=== PATIENT | female | born 1955 | race Caucasian/White ===

== ENCOUNTER 2018-03-07 07:38 | Day surgery (SDC) | payer OTHER ==
[~2018-03-07] VITALS: Ht 315 cm; Wt 100.7 kg
[~2018-03-07 07:38] MED LIST: AGGRENOX 25 MG-21 EA PO; AMITRIPTYLINE H50 MG PO; ASPIRIN325 MG PO; BAYER ADVANCED500 MG PO; BENADRYL25 MG PO; BUPROPION XL150 MG PO; CRESTOR20 MG PO; DICLOFENAC SODI75 MG PO; ESTROVEN NIGHT1 EAC1 PO; NEILMED SINUS1 EACH NAS
--- NOTE | 2018-03-07 10:02 | NUR ---
03/07/18 Jacinto1 Sylwia Lin 4504-PATIENT ARRIVED TO PACU ON 3L NC WEANED TO 2L NC O2 SAT 99% PATIENT VERY DROWSY EYES OPEN REPOSITIONED SELF TO BACK BACK TO SLEEP. PASSING FLATUS. ABDOMEN ROUND AND SOFT.
--- NOTE | 2018-03-08 09:05 | OR ---
[facility] [address], [place] [address] Signed DATE OF OPERATION: 03/07/2018 SURGEON: Xochitl Whelan MD COLONOSCOPY REPORT PREOPERATIVE DIAGNOSES: 1. Diverticulosis. 2. Internal hemorrhoids. 3. Hyperplastic rectal polyps. 4. Paternal great uncle with colon cancer. POSTOPERATIVE DIAGNOSES: 1. 12-mm pedunculated polyp at 22 cm (tattoo). 2. 10-mm sessile polyp, distal right colon. 3. 4-mm polyp, base of cecum. 4. 3-mm polyp at 70 cm. 5. 3-mm polyp at 20 cm. 6. Bbfrasc-ek-yydenodj sigmoid diverticulosis. 7. Moderate internal hemorrhoids. 8. Tortuous sigmoid colon. PROCEDURE PERFORMED: Colonoscopy with hot biopsy, snare polypectomy, and injection of tattoo at 22 cm. INDICATIONS: Jaimee is a 63-year-old female who came in 2006 for colonoscopy. She had diverticulosis along with internal hemorrhoids. The hyperplastic polyps have been taken out of rectum. In the meantime, she learned that her paternal great uncle had colon cancer. She has also had a stroke affecting her left side of her body. She said her left hand is still a little weak. 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 In the office, I gave her a pamphlet on colonoscopy. We looked at that test along with the risks including, but not limited to gas bloating, crampy abdominal pain, bleeding, perforation requiring surgery, and missed diagnosis. We also discussed the need for IV conscious sedation. She had expressed her understanding and wished to proceed. DESCRIPTION OF PROCEDURE: Jaimee was taken into our Endoscopy Suite and placed in the left lateral decubitus position. She was given IV sedation with 12 mg of Versed and 200 mcg of fentanyl to cover the case. She was also given preoperative antibiotics for her bilateral knee Electronically Signed By: XOCHITL WHELAN MD 03/08/18 0905 PATIENT NAME: JAIMEE OJEDA OPERATIVE REPORT DATE OF : 57 REPORT #: [id number] PHYSICIAN: XOCHITL WHELAN MD PCP: MIKA ROBERSON MD REPORT IS CONFIDENTIAL AND NOT TO BE RELEASED WITHOUT AUTHORIZATION [facility] [address], [place] [address] Signed replacements. A digital rectal exam was performed and this was unremarkable. The adult colonoscope was introduced and advanced all around into the cecum under direct visualization of camera. It took extra sedation and abdominal compression, particularly get through her tortuous sigmoid colon. Fortunately, her prep was good. The scope was slowly withdrawn. We used the hot biopsy forceps multiple times to remove and destroy the sessile polyp in the distal right colon. The other three smaller polyps were all removed with a hot biopsy forceps and then back at 22 cm was a pedunculated polyp, which we took off with the snare and biopsied and cauterized to one side with the hot biopsy forceps. We also injected a tattoo just opposite to that area to boogie its location. We suctioned the polyp onto the scope and brought it out through the rectum. In the sigmoid colon, she did have bgmiasj-js-tfcxcigc sigmoid diverticulosis. The scope was then retroflexed in the rectum. She did have moderate internal hemorrhoid columns. After this, the gas was suctioned out and the colonoscope removed. Jaimee tolerated the procedure quite well. RECOMMENDATIONS: I will see jaimee back in my office in 7 to 14 days to review her results. I suspect she is going to switch over to a colonoscopy every 5 years. Xochitl Whelan MD ALB/MODL /[id number] cc: MD Mika King MD Copies: XOCHITL WHELAN MD, MALCOLM MD ~ Electronically Signed By: XOCHITL WHELAN MD 03/08/18904 PATIENT NAME: JAIMEE OJEDA OPERATIVE REPORT DATE OF : 57 REPORT #: [id number] PHYSICIAN: XOCHITL WHELAN MD PCP: MIKA ROBERSON MD REPORT IS CONFIDENTIAL AND NOT TO BE RELEASED WITHOUT AUTHORIZATION
== END 2018-03-07 11:08 | disposition home or self-care (01) ==
LOC: DS 07:38 → OPS 07:38 → DS 09:00 → OPS 11:08
PROVIDERS: Colon & Rectal Surgery
PROC: 0DBH8ZZ Excision of Cecum, Via Natural or Artificial Opening Endoscopic (ICD-10-PCS; 2018-03-07)
PROC: 0DBE8ZZ Excision of Large Intestine, Via Natural or Artificial Opening Endoscopic (ICD-10-PCS; 2018-03-07)
PROC: 3E0H8GC Introduction of Other Therapeutic Substance into Lower GI, Via Natural or Artificial Opening Endoscopic (ICD-10-PCS; 2018-03-07)
PROC: 0DBK8ZZ Excision of Ascending Colon, Via Natural or Artificial Opening Endoscopic (ICD-10-PCS; principal; 2018-03-07 09:00)
DX: Z12.11 Encounter for screening for malignant neoplasm of colon (principal); D12.0 Benign neoplasm of cecum; D12.2 Benign neoplasm of ascending colon; D12.6 Benign neoplasm of colon, unspecified; K63.5 Polyp of colon; K57.30 Diverticulosis of large intestine without perforation or abscess without bleeding; K64.8 Other hemorrhoids; I69.354 Hemiplegia and hemiparesis following cerebral infarction affecting left non-dominant side; E78.00 Pure hypercholesterolemia, unspecified; E66.9 Obesity, unspecified; M19.90 Unspecified osteoarthritis, unspecified site; F32.9 Major depressive disorder, single episode, unspecified; Z80.0 Family history of malignant neoplasm of digestive organs; Z98.890 Other specified postprocedural states; Z88.1 Allergy status to other antibiotic agents; Z88.8 Allergy status to other drugs, medicaments and biological substances; Z79.899 Other long term (current) drug therapy
CPT/HCPCS: 99153; G0500; J2250; J3010; J7120

== ENCOUNTER 2021-04-12 15:29 | Emergency (ER) | payer MEDICARE, BC ==
[~2021-04-12] VITALS: Ht 162.6 cm; Wt 100.7 kg
[2021-04-12] MEDS ORDERED: TOPIRAMATE25 MG PO (16:04)
[2021-04-12] MEDS ORDERED: CLOPIDOGREL75 MG PO (16:04)
[2021-04-12] MEDS ORDERED: ATORVASTATIN CA80 MG PO (16:05)
[2021-04-12] MEDS ORDERED: CITALOPRAM HBR40 MG PO (16:05)
[2021-04-12] MEDS ORDERED: POTASSIUM CHLO10 MEQ PO (16:06)
== END 2021-04-12 17:25 | disposition home or self-care (01) ==
LOC: ED 15:29
DX: S63.502A Unspecified sprain of left wrist, initial encounter (principal); S00.12XA Contusion of left eyelid and periocular area, initial encounter; W01.10XA Fall on same level from slipping, tripping and stumbling with subsequent striking against unspecified object, initial encounter; Z86.73 Personal history of transient ischemic attack (TIA), and cerebral infarction without residual deficits; Z88.1 Allergy status to other antibiotic agents; Z88.8 Allergy status to other drugs, medicaments and biological substances; Z79.899 Other long term (current) drug therapy
CPT/HCPCS: 70450; 73110; 99284-25

== ENCOUNTER 2021-04-18 09:07 | Emergency (ER) | payer MEDICARE, BC ==
[~2021-04-18] VITALS: Ht 162.6 cm; Wt 98.0 kg
[~2021-04-18 09:07] MED LIST changes: +ATORVASTATIN CA80 MG PO; +CITALOPRAM HBR40 MG PO; +CLOPIDOGREL75 MG PO; +POTASSIUM CHLO10 MEQ PO; +TOPIRAMATE25 MG PO
--- OUTSIDE RECORDS SUMMARY | 2021-04-18 09:16 | XMS ---
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 Sudarshan VISIT COUNT (12 MO.) 1 [facility] [address] TOTAL 4 NOTE: Visits indicate total known visits. ED/UCC VISIT TRACKING (12 MO.) 04/18/2021 09:08 [facility] TYPE: Emergency COMPLAINT: - LEFT SHOULDER PAIN 04/12/2021 15:33 [facility] [place] TYPE: Emergency COMPLAINT: - FALL DIAGNOSES: - Fall on same level from slipping, tripping and stumbling with subsequent striking against unspecified object, initial encounter - Allergy status to other drugs, medicaments and biological substances - Contusion of left eyelid and periocular area, initial encounter - Unspecified sprain of left wrist, initial encounter - Allergy status to other antibiotic agents - Other retirement (current) drug therapy - Personal history of transient ischemic attack (TIA), and cerebral infarction without residual deficits 12/07/2020 13:49 [facility] TYPE: Emergency DIAGNOSES: - Cerebral infarction, unspecified - stroke 12/07/2020 06:24 [facility] [place] TYPE: Emergency DIAGNOSES: - STROKE - Cerebral infarction, unspecified INPATIENT VISIT TRACKING (12 MO.) 12/07/2020 13:49 [facility] TYPE: Neurology DIAGNOSES: - Obstructive sleep apnea (adult) (pediatric) - Rheumatic tricuspid insufficiency - Personal history of transient ischemic attack (TIA), and cerebral infarction without residual deficits - Cerebral infarction, unspecified - Hypokalemia - Localized enlarged lymph nodes [email or web address]
== END 2021-04-18 10:45 | disposition home or self-care (01) ==
LOC: ED 09:07
DX: S43.402A Unspecified sprain of left shoulder joint, initial encounter (principal); M25.522 Pain in left elbow; Z86.73 Personal history of transient ischemic attack (TIA), and cerebral infarction without residual deficits; Z88.8 Allergy status to other drugs, medicaments and biological substances; Z88.1 Allergy status to other antibiotic agents; Z79.899 Other long term (current) drug therapy
CPT/HCPCS: 73030; 73080; 99283-25

== ENCOUNTER 2021-08-01 11:17 | Observation (INO) | payer MEDICARE, BC ==
[~2021-08-01] VITALS: Ht 162.6 cm; Wt 92.5 kg
--- OUTSIDE RECORDS SUMMARY | 2021-08-01 11:20 | XMS ---
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 Care History Medical/Surgical 04/21/2021 [facility] - Patient is currently established with [facility]. If patient is seen in the ED during business hours. Please contact CHWs at [facility]. Care Recommendation: If this patient has had 5 or more Emergency Department visits in the last 12 months.\T\nbsp; Patient will require education on the scope and purpose of the ED as an acute care provider not a Primary Care Provider and should not be utilized for chronic conditions.\T\nbsp; These are guidelines and the provider should exercise clinical judgment when providing care. 04/21/2021 [facility] Patient was just seen by PCP Dr. Loera on 04/14/2021 and will be seen again on 06/07/2021. I left kalia to remind patient to follow up with Dr. Adams. [place] VISIT COUNT (12 MO.) 1 [place] [id number] [facility] TOTAL 5 NOTE: Visits indicate total known visits. ED/UCC VISIT TRACKING (12 MO.) 08/01/2021 11:17 [facility] [place] TYPE: Emergency COMPLAINT: - STROKE SYMPTOMS 04/18/2021 09:08 [facility] [place] TYPE: Emergency COMPLAINT: - LEFT SHOULDER PAIN DIAGNOSES: - Headache, unspecified - Allergy status to other drugs, medicaments and biological substances - Allergy status to other antibiotic agents - Personal history of transient ischemic attack (TIA), and cerebral infarction without residual deficits - Pain in left elbow - Unspecified sprain of left shoulder joint, initial encounter - Other local company intermodal truck driver (current) drug therapy 04/12/2021 15:33 [facility] [place] TYPE: Emergency [...] status to other antibiotic agents - Other shelter (current) drug therapy - Personal history of transient ischemic attack (TIA), and cerebral infarction without residual deficits 12/07/2020 13:49 [facility] TYPE: Emergency DIAGNOSES: - Cerebral infarction, unspecified - stroke 12/07/2020 06:24 [facility] [place] TYPE: Emergency DIAGNOSES: - STROKE - Cerebral infarction, unspecified INPATIENT VISIT TRACKING (12 MO.) 12/07/2020 13:49 [facility] TYPE: Neurology DIAGNOSES: - Obstructive sleep apnea (adult) (pediatric) - Rheumatic tricuspid insufficiency - Personal history of transient ischemic attack (TIA), and cerebral infarction without residual deficits - Cerebral infarction, unspecified - Hypokalemia - Localized enlarged lymph nodes [email or web address]
[2021-08-01] MEDS ORDERED: NITROFURANTOIN100 MG PO (11:30)
[2021-08-01] MEDS ORDERED: ESTRADIOL42.5 GM VAGINAL (11:30)
[2021-08-01] MEDS ORDERED: ACYCLOVIR200 MG PO (11:31)
--- NOTE | 2021-08-01 13:05 | NUR ---
Pt arrives to medical surgical floor. Dr Kumar in immediately to see patient. Tele placed, VSS, pt A+O. States having no symptoms currently. at bedside. Pt on room air.
--- NOTE | 2021-08-01 14:53 | NUR ---
Scheduled medications administered. Pt resting in bed, states "feeling well" and has no symptoms to report. Strength 4/5 on LUE, otherwise 5/5 with flexion. Pt able to drink water with no difficulty, no facial droop noted. ICE CREAM SERVER in room to assist patient with using commode
--- NOTE | 2021-08-01 19:30 | NUR ---
SHIFT REPORT RECEIVED FROM BERNADETTE FERREIRA. PT VISITING WITH FAMILY. NO NEEDS AT THIS TIME. CALL LIGHT IN REACH.
--- NOTE | 2021-08-01 22:00 | NUR ---
ASSESSMENT COMPLETED. GCS 15, A&O X4. LUNGS CLEAR, HEART TONES REGULAR. ABD SOFT, NONTENDER, BOWEL TONES ACTIVE. PT HAS DECREASED MOVEMENT IN LEFT SHOULDER AND HAND FROM PREVIOUS CVA, PT STATES SHE IS AT BASELINE NOW. PT HAS WEAKNESS IN BOTH LEGS WHEN STANDING. IV WNL, FLUSHED WELL, CDI. ABD SOFT, NONTENDER, BOWEL TONES ACTIVE. PULSES AND CIRCULATION INTACT. TELE HR SR @ 88. PT DENEIS PAIN. BRUISE NOTED ON RIGHT LOWER BACK. NO OTHER NEEDS AT THIS TIME. CALL LIGHT IN REACH.
--- NOTE | 2021-08-02 | NUR ---
PT RESTING IN BED, TALKING WITH AN RN. NO NEEDS AT THIS TIME. CALL LIGHT IN REACH.
--- NOTE | 2021-08-02 02:00 | NUR ---
VS AND I&O COMPLETED. NO CHANGES TO NEURO NOTED. NO NEEDS AT THIS TIME. CALL LIGHT IN REACH.
--- NOTE | 2021-08-02 04:00 | NUR ---
PT RESTING INBED, EYES CLOSED. RR EVEN, UNLABORED. CALL LIGHT IN REACH.
--- NOTE | 2021-08-02 06:00 | NUR ---
ASSESSMENT, VS AND I&O COMPLETED. LEFT SHOULDER AND HAND DECREASED MOVEMENT UNCHANGED. BLE WEAKNESS UNCHANGED. PT TRANSFERS 2PA TO BSC. GCS 15, A&O X4. IV WNL. LUNGS CLEAR, HEART TONES REGULAR. TELE SR @ 76. UP TO BSC AND BACK TO BED. NO OTHER NEEDS. CALL LIGHT IN REACH.
--- NOTE | 2021-08-02 07:15 | NUR ---
Report received from Jessie FERREIRA. Pt resting in bed with no needs at this time. Will continue plan of care.
[2021-08-02] MEDS ORDERED: TUMS200 MG PO (09:23)
[2021-08-02] MEDS ORDERED: CLARITIN10 MG PO (09:24)
[2021-08-02] MEDS ORDERED: ADULT ASPIRIN R81 MG PO (09:25)
[2021-08-02] MEDS ORDERED: CRANBERRY500 M3 PO (09:25)
[2021-08-02] MEDS ORDERED: VENTOLIN HFA18 GM INH (09:26)
[2021-08-02] MEDS ORDERED: HAIR, SKIN & N1 EACH PO (09:28)
[2021-08-02] MEDS ORDERED: VITAMIN D350 MCG PO (09:29)
[2021-08-02] MEDS ORDERED: MELATONIN10 M2 PO (09:30)
[2021-08-02] MEDS ORDERED: CENTRUM SILVER1 EAC3 PO (09:30)
[2021-08-02] MEDS ORDERED: LYSINE500 MG PO (09:32)
[2021-08-02] MEDS ORDERED: TURMERIC500 M2 PO (09:32)
[2021-08-02] MEDS ORDERED: FERROUS SULFAT325 M2 PO (09:33)
--- NOTE | 2021-08-02 09:45 | NUR ---
Scheduled medications administered and assessment complete. Neuro checks WNL, pt reports being at her baseline with L sided weakness and shoulder pain. Able to swallow pills whole with water. No neuro defecits noted--no facial droop, no slurred speech. Pt at bedside, attentive to patient and engaged in care.
--- NOTE | 2021-08-02 10:21 | NUR ---
MED REC COMPLETE
--- NOTE | 2021-08-02 10:55 | NUR ---
Discharge teaching provided and patient verbalizes understanding and has no questions. Pt in stable condition, VSS, A+O. Pt dressed and IV removed WNL. Personal belongings returned. Education paperwork and f/u appointment info provided. to provide ride home.
--- NOTE | 2021-08-02 13:47 | EKG ---
[facility] [address] [facility] [place], [place] [address] Signed Normal sinus rhythm Cannot rule out Inferior infarct , age undetermined Abnormal ECG No previous ECGs available Confirmed by JACI TOBAR MD ([id number]) on 08/02/2021 1:47:37 PM Electronically Signed By: JACI TOBAR MD 08/02/21 1347 PATIENT NAME: RUSTYYVETTE STARKEY Electrocardiogram DATE OF : 57 PHYSICIAN: JACI TOBAR MD REPORT #: [id number] REPORT IS CONFIDENTIAL AND NOT TO BE RELEASED WITHOUT AUTHORIZATION
== END 2021-08-02 10:55 | disposition home or self-care (01) ==
LOC: ED 11:17 → MS 11:18
PROVIDERS: ADMIT Internal Medicine; ATTEND Internal Medicine
DX: G45.1 Carotid artery syndrome (hemispheric) (principal); G81.94 Hemiplegia, unspecified affecting left nondominant side; E78.5 Hyperlipidemia, unspecified; F32.A Depression, unspecified; J44.9 Chronic obstructive pulmonary disease, unspecified; Z86.73 Personal history of transient ischemic attack (TIA), and cerebral infarction without residual deficits; Z88.1 Allergy status to other antibiotic agents; Z88.8 Allergy status to other drugs, medicaments and biological substances
CPT/HCPCS: 36415; 70450; 70496; 70498; 71045; 80053; 80061; 83036; 84484; 85025; 85610; 85730; 93005; 93010; Q9967; U0003

== ENCOUNTER 2024-12-03 06:25 | Day surgery (SDC) | payer MEDICARE, BC ==
[2024-11-26 11:43] VITALS: BP 123/53
[~2024-12-03] VITALS: Ht 162.6 cm; Wt 105.0 kg
[~2024-12-03 06:25] MED LIST changes: +ACYCLOVIR200 MG PO; +ADULT ASPIRIN R81 MG PO; +CEFDINIR300 MG PO; +CENTRUM SILVER1 EAC3 PO; +CLARITIN10 MG PO; +CRANBERRY500 M3 PO; +ESTRADIOL42.5 GM VAGINAL; +FERROUS SULFAT325 M2 PO; +HAIR, SKIN & N1 EACH PO; +LACTATED RINGER'S 1,000 ML IV SCH; +LYSINE500 MG PO; +MELATONIN10 M2 PO; +MOUNJARO5 MG/0.5 M SUB-Q; +NITROFURANTOIN100 MG PO; +TUMS200 MG PO; +TURMERIC500 M2 PO; +VENTOLIN HFA18 GM INH; +VITAMIN D350 MCG PO
[2024-12-03 06:39] VITALS: BP 122/94
[2024-12-03] MEDS ORDERED: IBLOOD GLUCOSE TEST STRIP 1 EA TEST VI PRN (07:00)
[2024-12-03] MEDS ORDERED: LIDOCAINE HCL 1% 5 ML SDV INJ ONE (07:00)
[2024-12-03] MEDS ORDERED: CEFAZOLIN SODIUM 1 GM/10 ML SYR IV SCH (07:05)
[2024-12-03 07:16] LABS: BASOPHILS 0.5 % (0.1-1.2); BASOPHILS, ABSOLUTE 0.04 K/uL (0.01-0.08); EOSINOPHILS 1.2 % (0.7-5.8); EOSINOPHILS, ABSOLUTE 0.09 K/uL (0.04-0.36); HEMATOCRIT 40.1 % (34.1-44.9); HEMOGLOBIN 13.1 g/dL (11.2-15.7); LYMPHOCYTES 27.6 % (19.3-51.7); LYMPHOCYTES, ABSOLUTE 2.16 K/uL (1.18-3.74); MCH 29.4 PG (25.6-32.2); MCHC 32.7 g/dL (32.2-35.5); MCV 90.1 fL (79.4-94.8); MONOCYTES 6.6 % (4.7-12.5); MONOCYTES, ABSOLUTE 0.52 K/uL (0.24-0.86); NEUTROPHILS 63.8 % (34.0-71.1); NEUTROPHILS, ABSOLUTE 4.99 K/uL (1.56-6.13); PLATELET COUNT 208 K/uL (182-369); RBC 4.45 M/uL (3.93-5.22)
[2024-12-03] MEDS ORDERED: CEFAZOLIN SODIUM 2 GM/20 ML SYR IV ONE (07:30)
[2024-12-03 07:31] LABS: ALBUMIN 3.2 g/dL (3.4-5.0); ALBUMIN/GLOBULIN RATIO 0.73 (1.1-2.4); ANION GAP 13.7 (7-21); BILIRUBIN, TOTAL 0.7 mg/dL (0.2-1.0); BUN/CREATININE RATIO 11.53 (6.0-28.6); CALCIUM 9.4 mg/dL (8.5-10.1); CREATININE, SERUM 1.04 mg/dL (0.55-1.02); POTASSIUM 3.7 mmol/L (3.5-5.1); PROTEIN, TOTAL 7.6 g/dL (6.4-8.2)
[2024-12-03] MEDS ORDERED: LIDOCAINE HCL 2% 5 ML SDV ONE (08:05)
[2024-12-03] MEDS ORDERED: propofoL 200 MG/20 ML VIAL ONE ×2 (08:05→09:03)
[2024-12-03] MEDS ORDERED: PHENYLEPHRINE HCL 10 MG/ML VIAL ONE (09:05)
--- NOTE | 2024-12-03 09:37 | NUR ---
12/03/24 0937 Sana Banegas 0920- PT PRESENTS TO PACU, SEMI NELSON POSITION, NON REACTIVE TO STIMULUS. O2 AT 6L PER MASK, BREATHING EVEN AND NON LABORED. LR INFUSING TO LAC IV, NON REACTIVE TO STIMULUS AT THIS TIME. ABD SOFT, NON DISTENDED. ALL MONITORS IN PLACE. 0929- PT WOKE ON OWN, REPETITIVE QUESTIONING, LAUGHING. MOVED TO ROOM AIR. ASKING FOR WATER, SMALL SIP OF WATER TOLERATED WELL.
[2024-12-03 09:46] VITALS: BP 107/78
--- NOTE | 2024-12-04 11:29 | OR ---
[facility] [address] [facility] [place], [place] [address] Signed DATE OF OPERATION: 12/03/2024 SURGEON: Kaycee Nath DO PREOPERATIVE DIAGNOSIS: Colon cancer screening. POSTOPERATIVE DIAGNOSIS: Colon cancer screening with diverticulosis and polyps at 20 and 40 cm. PROCEDURE PERFORMED: Colonoscopy to 80 cm and biopsy of polyps at 20 and 40 cm. ANESTHESIA: IV sedation. ESTIMATED BLOOD LOSS: None. DRAINS: None. COMPLICATIONS: None. DESCRIPTION OF PROCEDURE: The patient was brought to the GI lab, placed in supine position. After induction of IV sedation, she was placed in the left lateral position, satisfactory with anesthesia. Digital rectal exam was performed, and no masses were noted. The Olympus video colonoscope was introduced into the rectum to the rectosigmoid and into the descending colon. Upon encounter in the descending colon a significant amount of formed stool was noted. Multiple attempts were passed to either irrigate, break or clean the area still, but this could not be completed. The colonoscope was taken just a little past the splenic flexure to 80 cm, and it was felt that there was such a poor bowel prep that it could not be completed. The scope was then withdrawn. Splenic flexure was unremarkable. Descending colon unremarkable. At 40 cm, a flat sessile polyp was noted. Multiple biopsies were taken, passed off the field. The scope was brought back into the sigmoid colon. Some diverticulosis was noted, but no diverticulitis was noted. A polyp was noted at 20 cm. Multiple biopsies were taken and passed off the field as well. Satisfactory hemostasis was maintained above polyp areas. Electronically Signed By: KAYCEE NATH DO 12/04/24 1129 PATIENT NAME: YVETTE OJEDA OPERATIVE REPORT DATE OF : 57 REPORT #: [id number] PHYSICIAN: KAYCEE NATH DO PCP: OMI TABARES DO REPORT IS CONFIDENTIAL AND NOT TO BE RELEASED WITHOUT AUTHORIZATION [facility] [address] [place] [address] [place], [place] [address] Signed Remainder of the rectosigmoid and rectum were unremarkable. Colon was decompressed. The scope was withdrawn, and the patient tolerated the procedure well, went to recovery room in satisfactory condition. DO HEMANTH Galan/LOSL /[id number] Copies: ~ Electronically Signed By: KAYCEE NATH DO 12/04/24 1129 PATIENT NAME: YVETTE OJEDA OPERATIVE REPORT DATE OF : 57 REPORT #: [id number] PHYSICIAN: KAYCEE NATH DO PCP: OMI TABARES DO REPORT IS CONFIDENTIAL AND NOT TO BE RELEASED WITHOUT AUTHORIZATION
--- NOTE | 2024-12-06 19:10 | PATH ---
[facility] [address] [place], [place] [address] Signed SPECIMEN(S): A COLON POLYP AT 40 CM SPECIMEN(S): B COLON POLYP AT 20 CM SPECIMEN SOURCE: A. COLON POLYP AT 40 CM B. COLON POLYP AT 20 CM CLINICAL HISTORY: Diverticulosis, polyps at 20 cm and 40 cm A/B) polyp FINAL PATHOLOGIC DIAGNOSIS: A. Colon, polyp at 40 cm, biopsy: - Colonic mucosa with no specific histopathologic abnormality. - Multiple levels are examined with no polypoid structure identified. - Negative for inflammation, dysplasia, and malignancy. B. Colon, polyp at 20 cm, biopsy: - Colonic mucosa with focal superficial goblet cell hyperplasia and a minute benign lamina propria lymphoid aggregate. - Multiple levels are examined with no polypoid structure identified. - Negative for inflammation, dysplasia, and malignancy. SDL MICROSCOPIC EXAMINATION: Histologic sections of all submitted blocks are examined by light microscopy. These findings, together with the gross examination, support the pathologic diagnosis. GROSS DESCRIPTION: A. The specimen, labeled and designated "Doug Ojeda, colon polyp at 40 cm," is received in formalin and consists of two pacheco soft tissue fragments, ranging from 0.2-0.3 cm. Entirely submitted in (A1). B. The specimen, labeled and designated "Doug Ojeda, colon polyp at 20 cm," is received in formalin and consists of two pacheco soft tissue fragments, ranging from 0.1-0.3 cm. Entirely submitted in (B1). AB (under the direct supervision of a pathologist) The Gross Description was prepared using a voice recognition system. The report was reviewed for accuracy; however, sound-alike word errors, addition and/or deletions may occur. If there are any questions about this report, please contact Client Services. PATIENT NAME: YVETTE OJEDA PATHOLOGY DATE OF : 57 REPORT #: [id number] PHYSICIAN: ANH PATHOLOGY PCP: OMI TABARES DO REPORT IS CONFIDENTIAL AND NOT TO BE RELEASED WITHOUT AUTHORIZATION [facility] [address] [place], [place] [address] Signed ADDITIONAL NOTES: Immunohistochemical and/or in situ hybridization studies if performed in this case included appropriate positive controls that reacted as expected. This test was developed and its performance characteristics determined by [facility]. It has not been cleared or approved by the U.S. Food and Drug Administration. The FDA has determined that such clearance or approval is not necessary. This test is used for clinical purposes. It should not be regarded as investigational or for research. [facility] is certified under the Clinical Laboratory Improvement Amendments of 1988 (CLIA) as qualified to perform high complexity clinical laboratory testing. PERFORMING LABORATORY: Technical component was performed by [facility], [address] [place] [id number] (CLIA# [id number]). Professional interpretation was performed by [facility] - [facility], [address] [place] [id number] (CLIA#: [id number]). Diagnostician: Sarai Maki MD Pathologist Electronically Signed 12/06/2024 Copies: ~ PATIENT NAME: YVETTE OJEDA PATHOLOGY DATE OF : 57 REPORT #: [id number] PHYSICIAN: ANH BERUMEN PCP: OMI TABARES DO REPORT IS CONFIDENTIAL AND NOT TO BE RELEASED WITHOUT AUTHORIZATION
== END 2024-12-03 10:00 | disposition home or self-care (01) ==
LOC: DS 06:25
PROVIDERS: ATTEND Surgery
PROC: 0DBE8ZX Excision of Large Intestine, Via Natural or Artificial Opening Endoscopic, Diagnostic (ICD-10-PCS; principal; 2024-12-03 08:10)
DX: Z12.11 Encounter for screening for malignant neoplasm of colon (principal); K63.5 Polyp of colon; K57.30 Diverticulosis of large intestine without perforation or abscess without bleeding; E78.5 Hyperlipidemia, unspecified; I12.9 Hypertensive chronic kidney disease with stage 1 through stage 4 chronic kidney disease, or unspecified chronic kidney disease; N18.30 Chronic kidney disease, stage 3 unspecified; G47.33 Obstructive sleep apnea (adult) (pediatric); Z99.89 Dependence on other enabling machines and devices; J44.9 Chronic obstructive pulmonary disease, unspecified; E66.9 Obesity, unspecified; Z79.899 Other long term (current) drug therapy; Z88.8 Allergy status to other drugs, medicaments and biological substances
CPT/HCPCS: 00811; 36415; 80053; 85025; J0690; J2003; J2371; J2704; J7121